=== PATIENT | female | born 1980 | race African-American/Black ===

== ENCOUNTER → 2017-04-07 | Outpatient (CLI) | payer OTHER ==
[~2017-04-07] MED LIST: ALBUTEROL20 ml INH; AMOXICILLIN500 M1 PO; AZITHROMYCIN1 GM PO; BIAXIN PO; DESYREL50 MG PO; DIAZEPAM PO; ENALAPRIL MALEA10 MG PO; FLAGYL; FLEXERIL10 MG PO; HYDROCHLOROTHIA25 MG PO; HYDROCODON-ACE1 EAC9 PO; HYDROCODONE PO; LISINOPRIL PO; LISINOPRIL-HCTZ1 T15 PO; MACROBID100 MG PO; MEDROL DOSEPAK4 MG PO; NAPROSYN PO; NAPROSYN500 MG PO; NO MEDICATIONS; NORVASC10 MG PO; PHENERGAN25 M1 PO; PREVACID PO; PRINIVIL10 MG; PYRIDIUM; SEPTRA DS PO; TRAMADOL HCL50 M1 PO; TRAMADOL PO; VOLTAREN50 MG PO; VOLTAREN75 MG PO; ZESTRIL10 M2 PO
== END | disposition home or self-care (01) ==
LOC: CBAR 14:02
DX: Z01.818 Encounter for other preprocedural examination (principal); E66.01 Morbid (severe) obesity due to excess calories
CPT/HCPCS: G0463

== ENCOUNTER → 2017-05-16 | Outpatient (CLI) | payer OTHER | END | disposition home or self-care (01) | LOC: CBAR 05-06 06:04 | DX: Z01.818 Encounter for other preprocedural examination (principal); E66.01 Morbid (severe) obesity due to excess calories | CPT/HCPCS: G0463 ==